=== PATIENT | male | born 1950 | race Caucasian/White ===

== ENCOUNTER 2021-01-30 22:10 | Emergency (ER) | payer MEDICARE ==
[~2021-01-30] VITALS: Ht 188 cm; Wt 98.0 kg
[2021-01-30] MEDS ORDERED: HYDROCODONE/APAP 5MG-325MG TAB PO ONE (23:30)
[2021-01-30] MEDS ORDERED: PREDNISONE 20 MG TAB PO ONE (23:30)
[2021-01-30] MEDS ORDERED: HYDROCODONE/APAP 5MG-325MG TAB ONE (23:53)
[2021-01-30] MEDS ORDERED: PREDNISONE 20 MG TAB ONE (23:53)
[2021-01-31] MEDS ORDERED: PREDNISONE20 MG PO (00:39)
[2021-01-31] MEDS ORDERED: HYDROCODON-ACE1 EA11 PO (00:41)
[2021-01-31 00:44] VITALS: BP 161/88
== END 2021-01-31 00:50 | disposition home or self-care (01) ==
LOC: FSED 22:50
DX: M79.671 Pain in right foot (principal); M10.9 Gout, unspecified; I10 Essential (primary) hypertension; E78.5 Hyperlipidemia, unspecified; E66.9 Obesity, unspecified
CPT/HCPCS: 73630; 99283; J7512